=== PATIENT | female | born 1975 | race Caucasian/White ===

== ENCOUNTER 2017-07-23 08:59 | Observation (INO) | payer OTHER ==
[2017-07-23] MEDS ORDERED: RX INFO: IV CONTRAST WAS GIVEN 1 EACH MISC MISCELLANE PRN (09:13)
[2017-07-23] MEDS ORDERED: SODIUM CHLORIDE 0.9% 500 ML IV STA (09:13)
[2017-07-23 09:41] LABS: Basophils % (A) 0 %; Eosinophils # (A) 0.3 k/uL (0-0.7); Eosinophils % (A) 3 %; HCT 44.5 % (34.0-46.0); HGB 14.2 gm/dL (11.4-16.0); Lymphocytes # (A) 1.4 k/uL (1.0-4.8); Lymphocytes % (A) 15 %; MCHC 31.8 g/dL (31.0-37.0); MCV 84.8 fL (80.0-100.0); Mean Platelet Volume 7.7; Monocytes # (A) 0.5 k/uL (0-1.0); Monocytes % (A) 5 %; Neutrophils # (A) 6.8 k/uL (1.3-7.7); Neutrophils % (A) 75 %; Platelet Count 248 k/uL (150-450); RBC 5.25 m/uL (3.80-5.40); RDW 12.6 % (11.5-15.5)
[2017-07-23 09:53] LABS: Appearance,Urine Clear (Clear); Bacteria,Urine Rare /hpf; Bilirubin,Urine Negative (Negative); Blood,Urine Trace (Negative); Color,Urine Yellow; Glucose,Urine (UA) Negative (Negative); Ketones,Urine Negative (Negative); Leukocyte Esterase,Urine Small (Negative); Mucus,Urine Occasional /hpf; Nitrite,Urine Negative (Negative); Protein,Urine Negative (Negative); RBC,Urine 2 /hpf (0-5); Specific Gravity,Urine 1.017 (1.001-1.035); Squamous Epithelial Cell,Urine 3 /hpf (0-4); Urobilinogen,Urine <2.0 mg/dL (<2.0); WBC,Urine 6 /hpf (0-5)
[2017-07-23 09:54] LABS: ALT 36 U/L (9-52); AST 29 U/L (14-36); Albumin 4.3 g/dL (3.5-5.0); Alkaline Phosphatase 46 U/L (38-126); Amylase 50 U/L (30-110); Anion Gap 12 mmol/L; Blood Urea Nitrogen 11 mg/dL (7-17); Calcium 9.3 mg/dL (8.4-10.2); Carbon Dioxide 24 mmol/L (22-30); Chloride 106 mmol/L (98-107); Glucose 98 mg/dL (74-99); Lipase 113 U/L (23-300); Potassium 4.3 mmol/L (3.5-5.1); Sodium 142 mmol/L (137-145); Total Bilirubin 0.5 mg/dL (0.2-1.3); Total Protein 7.2 g/dL (6.3-8.2)
--- NOTE | 2017-07-23 10:00 | ED ---
Abdominal Pain HPI - General Chief Complaint: Abdominal Pain Stated Complaint: poss appendicitis Time Seen by Provider: 07/23/17 09:13 Source: patient, RN notes reviewed Mode of arrival: ambulatory Limitations: no limitations - History of Present Illness Initial Comments: 42-year-old female presents emergency Department with chief complaint of right- sided abdominal pain. Patient states he woke up abdominal night. She states it 's moderate discomfort to the right lower quadrant she does admit that she's had prior ovarian cyst surgery when she was teenager. Patient denies any known fever or chills or night sweats. She has no nausea vomiting diarrhea constipation this time no dysuria hematuria and states that she does not believe that she is . Patient states that certain things make it feel worse such as laying flat or getting to a seated position - Related Data Home Medications Medication Instructions Recorded Confirmed Plexus Biocleanse 2 cap PO PC-BID 07/23/17 07/23/17 Plexus Megax 2 cap PO DAILY 07/23/17 07/23/17 Plexus Probio 1 - 2 cap PO HS 07/23/17 07/23/17 Plexus Slim 1 pack PO AC-BRKFST 07/23/17 07/23/17 Allergies Allergy/AdvReac Type Severity Reaction Status Date / Time No Known Allergies Allergy Verified 07/23/17 09:12 Review of Systems ROS Statement: Those systems with pertinent positive or pertinent negative responses have been documented in the HPI. ROS Other: All systems not noted in ROS Statement are negative. Past Medical History Past Medical History: No Reported History History of Any Multi-Drug Resistant Organisms: None Reported Additional Past Surgical History / Comment(s): ovarian cyst surg Past Psychological History: Anxiety Smoking Status: Current every day smoker Past Alcohol Use History: Rare Past Drug Use History: None Reported General Exam Limitations: no limitations General appearance: alert, in no apparent distress Head exam: Present: atraumatic, normocephalic, normal inspection Respiratory exam: Present: normal lung sounds bilaterally. Absent: respiratory distress, wheezes, rales, rhonchi, stridor Cardiovascular Exam: Present: regular rate, normal rhythm, normal heart sounds. Absent: systolic murmur, diastolic murmur, rubs, gallop, clicks GI/Abdominal exam: Present: soft, tenderness (Moderate right lower quadrant tenderness), normal bowel sounds. Absent: distended, guarding, rebound, rigid Back exam: Absent: CVA tenderness (R), CVA tenderness (L) Skin exam: Present: warm, dry, intact, normal color. Absent: rash Course Vital Signs 07/23/17 07/23/17 09:09 10:44 Temperature 97.4 F L Pulse Rate 94 66 Respiratory 18 16 Rate Blood Pressure 155/65 121/65 O2 Sat by Pulse 100 100 Oximetry Medical Decision Making - Lab Data Result diagrams: 07/23/17 09:20 07/23/17 09:20 Lab Results 07/23/17 07/23/17 07/23/17 Range/Units 09:20 09:20 09:20 WBC 9.0 (3.8-10.6) k/uL RBC 5.25 (3.80-5.40) m/uL Hgb 14.2 (11.4-16.0) gm/dL Hct 44.5 (34.0-46.0) % MCV 84.8 (80.0-100.0) fL MCH 27.0 (25.0-35.0) pg MCHC 31.8 (31.0-37.0) g/dL RDW 12.6 (11.5-15.5) % Plt Count 248 (150-450) k/uL Neutrophils % 75 % Lymphocytes % 15 % Monocytes % 5 % Eosinophils % 3 % Basophils % 0 % Neutrophils # 6.8 (1.3-7.7) k/uL Lymphocytes # 1.4 (1.0-4.8) k/uL Monocytes # 0.5 (0-1.0) k/uL Eosinophils # 0.3 (0-0.7) k/uL Basophils # 0.0 (0-0.2) k/uL Sodium 142 (137-145) mmol/L Potassium 4.3 (3.5-5.1) mmol/L Chloride 106 (98-107) mmol/L Carbon Dioxide 24 (22-30) mmol/L Anion Gap 12 mmol/L BUN 11 (7-17) mg/dL Creatinine 0.72 (0.52-1.04) mg/dL Est GFR (CKD-EPI)AfAm >90 (>60 ml/min/1.73 sqM) Est GFR (CKD-EPI)NonAf >90 (>60 ml/min/1.73 sqM) Glucose 98 (74-99) mg/dL Calcium 9.3 (8.4-10.2) mg/dL Total Bilirubin 0.5 (0.2-1.3) mg/dL AST 29 (14-36) U/L ALT 36 (9-52) U/L Alkaline Phosphatase 46 (38-126) U/L Total Protein 7.2 (6.3-8.2) g/dL Albumin 4.3 (3.5-5.0) g/dL Amylase 50 (30-110) U/L Lipase 113 (23-300) U/L Urine Color Urine Appearance (Clear) Urine pH (5.0-8.0) Ur Specific [place] (1.001-1.035) Urine Protein (Negative) Urine Glucose (UA) (Negative) Urine Ketones (Negative) Urine Blood (Negative) Urine Nitrite (Negative) Urine Bilirubin (Negative) Urine Urobilinogen (<2.0) mg/dL Ur Leukocyte Esterase (Negative) Urine RBC (0-5) /hpf Urine WBC (0-5) /hpf Ur Squamous Epith Cells (0-4) /hpf Urine Bacteria (None) /hpf Urine Mucus (None) /hpf Urine HCG, Qual Not Detected (Not Detectd) 07/23/17 Range/Units 09:20 WBC (3.8-10.6) k/uL RBC (3.80-5.40) m/uL Hgb (11.4-16.0) gm/dL Hct (34.0-46.0) % MCV (80.0-100.0) fL MCH (25.0-35.0) pg MCHC (31.0-37.0) g/dL RDW (11.5-15.5) % Plt Count (150-450) k/uL Neutrophils % % Lymphocytes % % Monocytes % % Eosinophils % % Basophils % % Neutrophils # (1.3-7.7) k/uL Lymphocytes # (1.0-4.8) k/uL Monocytes # (0-1.0) k/uL Eosinophils # (0-0.7) k/uL Basophils # (0-0.2) k/uL Sodium (137-145) mmol/L Potassium (3.5-5.1) mmol/L Chloride (98-107) mmol/L Carbon Dioxide (22-30) mmol/L Anion Gap mmol/L BUN (7-17) mg/dL Creatinine (0.52-1.04) mg/dL Est GFR (CKD-EPI)AfAm (>60 ml/min/1.73 sqM) Est GFR (CKD-EPI)NonAf (>60 ml/min/1.73 sqM) Glucose (74-99) mg/dL Calcium (8.4-10.2) mg/dL Total Bilirubin (0.2-1.3) mg/dL AST (14-36) U/L ALT (9-52) U/L Alkaline Phosphatase (38-126) U/L Total Protein (6.3-8.2) g/dL Albumin (3.5-5.0) g/dL Amylase (30-110) U/L Lipase (23-300) U/L Urine Color Yellow Urine Appearance Clear (Clear) Urine pH 6.0 (5.0-8.0) Ur Specific [place] 1.017 (1.001-1.035) Urine Protein Negative (Negative) Urine Glucose (UA) Negative (Negative) Urine Ketones Negative (Negative) Urine Blood Trace H (Negative) Urine Nitrite Negative (Negative) Urine Bilirubin Negative (Negative) Urine Urobilinogen <2.0 (<2.0) mg/dL Ur Leukocyte Esterase Small H (Negative) Urine RBC 2 (0-5) /hpf Urine WBC 6 H (0-5) /hpf Ur Squamous Epith Cells 3 (0-4) /hpf Urine Bacteria Rare H (None) /hpf Urine Mucus Occasional H (None) /hpf Urine HCG, Qual (Not Detectd) Disposition Clinical Impression: Acute appendicitis Disposition: HOME SELF-CARE Condition: Stable Referrals: Mirella Pa MD [Primary Care Provider] - 1-2 days Time of Disposition: 11:09
--- NOTE | 2017-07-23 10:38 | CT ---
EXAMINATION TYPE: CT abdomen pelvis w con DATE OF EXAM: 07/23/2017 COMPARISON: NONE HISTORY: Patient complains of RUQ/right flank pain. CT DLP: 335.6 mGycm Automated exposure control for dose reduction was used. CONTRAST: CT scan of the abdomen pelvis is performed with IV Contrast, patient injected with 100 mL of Isovue 3 00. FINDINGS- LUNG BASES- No significant abnormality is appreciated. LIVER/GB- No gross abnormality is appreciated. PANCREAS- No gross abnormality is seen. SPLEEN- No gross abnormality is seen. ADRENALS- No gross abnormality is seen. KIDNEYS/BLADDER- no hydronephrosis nephrolithiasis or renal mass. BOWEL-there appears to be a dilated tubular structure measuring 10 mm in the right lower quadrant wit h suspected appendicolith. Suspect this is related to the appendix correlate for appendicitis. . LYMPH NODES- No greater than 1cm abdominal or pelvic lymph nodes are appreciated. OSSEOUS STRUCTURES- No significant abnormality is seen. OTHER- small amount of fluid is seen in the pelvis. There is a right-sided ovarian cyst measuring ap proximately 1.9 cm. Aorta of normal caliber. No definite free air. IMPRESSION- 1. Dilated tubular structure containing 2 areas of hyperdensity most likely related to a dilated appe ndix with appendicolith. Correlate for acute appendicitis. 2. Small amount of free fluid in the pelvis with a 1.9 cm right ovarian cyst. 3. The uterus is somewhat prominent and heterogeneous in appearance which could be correlated with ul trasound on a short-term basis.
[2017-07-23] MEDS ORDERED: NALOXONE 0.4 MG/ML 1 ML VIAL IV PRN ×2 (11:10→15:40)
[2017-07-23] MEDS ORDERED: PIPERACILLIN-TAZOBACTAM 3.375 GM in DEXTROSE/WATER 1 50ML.BAG IVPB STA (11:10)
[2017-07-23] MEDS ORDERED: SODIUM CHLORIDE 0.9% 1,000 ML IV SCH (11:15)
[2017-07-23] MEDS ORDERED: NICOTINE 21MG/24HR PATCH TRANSDERM STA (11:57)
[2017-07-23] MEDS ORDERED: IV FLUID CONTINUATION 1,000 ML IV ONE (12:33)
[2017-07-23] MEDS ORDERED: ONDANSETRON 4 MG/2 ML VIAL IVP ONE (12:53)
[2017-07-23] MEDS ORDERED: DEXAMETHASONE SOD PHOSPHATE 10 MG/ML 1 ML VIAL IV ONE (12:53)
[2017-07-23] MEDS ORDERED: HEPARIN SODIUM,PORCINE 5,000 UNIT/ML 1 ML VIAL SQ ONE (13:27)
--- NOTE | 2017-07-23 13:36 | P.GSHP ---
History of Present Illness H&P Date: 07/23/17 42-year-old female presents to the emergency department complaining of right lower quadrant pain. She states that the pain started a few hours prior to her arriving to the emergency department. She states it did wake her up from sleep. She denied any nausea or emesis episodes. She states she has been having normal bowel function. On workup, the emergency department did order a CT of the abdomen and pelvis that showed a dilated appendix and acute appendicitis. The patient states that she has had 2 laparoscopic ovarian cyst procedures in the past. She denies being on any anticoagulation. She does admit to tobacco use daily. She has no additional complaints at this time. She denies any fevers, chills, chest pain or shortness of breath. - Review of Systems All systems: negative Past Medical History Past Medical History: No Reported History History of Any Multi-Drug Resistant Organisms: None Reported Additional Past Surgical History / Comment(s): ovarian cyst surg Past Psychological History: Anxiety Smoking Status: Current every day smoker Past Alcohol Use History: Rare Past Drug Use History: None Reported Medications and Allergies Home Medications Medication Instructions Recorded Confirmed Type Plexus Biocleanse 2 cap PO PC-BID 07/23/17 07/23/17 History Plexus Megax 2 cap PO DAILY 07/23/17 07/23/17 History Plexus Probio 1 - 2 cap PO HS 07/23/17 07/23/17 History Plexus Slim 1 pack PO AC-BRKFST 07/23/17 07/23/17 History Allergies Allergy/AdvReac Type Severity Reaction Status Date / Time No Known Allergies Allergy Verified 07/23/17 09:12 Surgical - Exam Osteopathic Statement: *. No significant issues noted on an osteopathic structural exam other than those noted in the History and Physical/Consult. Vital Signs Temp Pulse Resp BP Pulse Ox 97.4 F L 94 18 155/65 100 07/23/17 09:09 07/23/17 09:09 07/23/17 09:09 07/23/17 09:09 07/23/17 09:09 - General well nourished, no distress - Eyes PERRL - ENT normal mucosa, no hearing loss - Neck trachea midline - Respiratory No difficulty with respiration - Abdomen Soft, tender to palpation in the right lower quadrant, nondistended, no rebound , no guarding - Neurologic normal sensation - Musculoskeletal normal gait - Psychiatric oriented to time, oriented to person, oriented to place Results - Labs 07/23/17 09:20 07/23/17 09:20 Abnormal Lab Results - Last 24 Hours (Table) 07/23/17 Range/Units 09:20 Urine Blood Trace H (Negative) Ur Leukocyte Esterase Small H (Negative) Urine WBC 6 H (0-5) /hpf Urine Bacteria Rare H (None) /hpf Urine Mucus Occasional H (None) /hpf Diabetes panel 07/23/17 Range/Units 09:20 Sodium 142 (137-145) mmol/L Potassium 4.3 (3.5-5.1) mmol/L Chloride 106 (98-107) mmol/L Carbon Dioxide 24 (22-30) mmol/L BUN 11 (7-17) mg/dL Creatinine 0.72 (0.52-1.04) mg/dL Glucose 98 (74-99) mg/dL Calcium 9.3 (8.4-10.2) mg/dL AST 29 (14-36) U/L ALT 36 (9-52) U/L Alkaline Phosphatase 46 (38-126) U/L Total Protein 7.2 (6.3-8.2) g/dL Albumin 4.3 (3.5-5.0) g/dL Calcium panel 07/23/17 Range/Units 09:20 Calcium 9.3 (8.4-10.2) mg/dL Albumin 4.3 (3.5-5.0) g/dL Pituitary panel 07/23/17 Range/Units 09:20 Sodium 142 (137-145) mmol/L Potassium 4.3 (3.5-5.1) mmol/L Chloride 106 (98-107) mmol/L Carbon Dioxide 24 (22-30) mmol/L BUN 11 (7-17) mg/dL Creatinine 0.72 (0.52-1.04) mg/dL Glucose 98 (74-99) mg/dL Calcium 9.3 (8.4-10.2) mg/dL Adrenal panel 07/23/17 Range/Units 09:20 Sodium 142 (137-145) mmol/L Potassium 4.3 (3.5-5.1) mmol/L Chloride 106 (98-107) mmol/L Carbon Dioxide 24 (22-30) mmol/L BUN 11 (7-17) mg/dL Creatinine 0.72 (0.52-1.04) mg/dL Glucose 98 (74-99) mg/dL Calcium 9.3 (8.4-10.2) mg/dL Total Bilirubin 0.5 (0.2-1.3) mg/dL AST 29 (14-36) U/L ALT 36 (9-52) U/L Alkaline Phosphatase 46 (38-126) U/L Total Protein 7.2 (6.3-8.2) g/dL Albumin 4.3 (3.5-5.0) g/dL - Imaging CT scan - abdomen: report reviewed, image reviewed (CT of the abdomen and pelvis was reviewed. Appendicolith noted. Acute appendicitis.) CT scan - pelvis: report reviewed, image reviewed Assessment and Plan (1) Acute appendicitis Narrative/Plan: 42-year-old female with acute appendicitis - Patient was given Zosyn in the emergency department, continue antibiotics - Subcu heparin - Keep nothing by mouth - Plan for operating room for laparoscopic appendectomy - Further recommendations after surgery Current Visit: Yes Status: Acute Code(s): K35.80 - UNSPECIFIED ACUTE APPENDICITIS SNOMED Code(s): 24564416
[2017-07-23] MEDS ORDERED: GLYCOPYRROLATE 0.2 MG/ML 2 ML VIAL ONE (14:13)
[2017-07-23] MEDS ORDERED: LIDOCAINE 1% INJ 10MG/ML (20 ML MDV) ONE (14:13)
[2017-07-23] MEDS ORDERED: MIDAZOLAM 2 MG/2 ML VIAL ONE (14:13)
[2017-07-23] MEDS ORDERED: KETOROLAC 30 MG/ML 1 ML VIAL ONE (14:13)
[2017-07-23] MEDS ORDERED: fentaNYL (PF) 50 MCG/ML 2 ML AMP ONE (14:13)
[2017-07-23] MEDS ORDERED: PROPOFOL 10 MG/ML 20 ML VIAL IV ONE (14:13)
[2017-07-23] MEDS ORDERED: NEOSTIGMINE 1 MG/ML 10 ML VIAL ONE (14:13)
[2017-07-23] MEDS ORDERED: ROCURONIUM BROMIDE 10 MG/ML 10 ML VIAL IV ONE (14:13)
[2017-07-23] MEDS ORDERED: LIDOCAINE 1%-EPI 1:100,000 30 ML VIAL SQ ONE ×2 (14:31→14:51)
--- NOTE | 2017-07-23 15:12 | P.OP ---
Date of Procedure: 07/23/17 Preoperative Diagnosis: Acute appendicitis Postoperative Diagnosis: Acute appendicitis Procedure(s) Performed: Laparoscopic appendectomy Anesthesia: KAIDEN Surgeon: Joe Orellana Pathology: other (Appendix) Condition: stable Disposition: floor Indications for Procedure: 42-year-old female presented to the emergency department complaining of right lower quadrant pain. On workup she was found to have acute appendicitis with an appendicolith at the base of the appendix. Due to this, the patient was offered a laparoscopic appendectomy. The patient was excellent the risks, benefits and alternatives to the procedure provided consent prior to attending the operating suite. Operative Findings: Inflamed and thickened appendix Description of Procedure: The patient was brought to the operating suite placed in supine position on the operating table. Sedation was provided by anesthesia and the patient underwent endotracheal intubation. The patient was then prepped and draped in regular sterile fashion. An infraumbilical incision was made dissection was carried to the fascia and the fascia was incised. A 12 mm port was then placed and pneumoperitoneum was achieved. The patient was then placed in appropriate position. The inflamed appendix was immediately visible. 2 additional 5 mm ports were placed. One was placed in the suprapubic region and one was placed in the left lower quadrant. The appendix was then grasped and elevated. A [place] dissector was used to create a window between the appendix and the mesoappendix. A LigaSure device was then used to dissect the mesoappendix from the appendix. Hemostasis was noted to be maintained. The base of the appendix was then clearly visualized. A purple load Endo MITCHELL 45 mm stapler was then placed across the base of the appendix. Once fired, the appendix was free and was placed in a Endo Catch bag and removed from the abdomen. Irrigation was then used in the right lower quadrant and suctioned free. The infraumbilical incision site fascia was closed with a [id number] 0 Vicryl suture. This was placed under direct visualization with a Shonna device. Pneumoperitoneum was then released. All skin incisions were then closed with 4- 0 Vicryl subcuticular sutures. The patient was then awakened in the operating suite and taken to postanesthesia care unit in stable condition.
[2017-07-23] MEDS ORDERED: HYDROcodone/APAP 5-325MG 1 EACH TAB PO PRN (15:40)
[2017-07-23] MEDS ORDERED: LACTATED RINGERS 1,000 ML IV ONE (15:40)
[2017-07-23] MEDS ORDERED: ONDANSETRON 4 MG/2 ML VIAL IVP PRN (15:40)
[2017-07-23] MEDS: KETOROLAC 30 MG/ML 1 ML VIAL IVP SCH ×2 (17:03→22:21)
[2017-07-23] MEDS: HEPARIN SODIUM,PORCINE 5,000 UNIT/ML 1 ML VIAL SQ SCH ×2 (17:10→22:22)
[2017-07-23] MEDS: PIPERACILLIN-TAZOBACTAM 3.375 GM in DEXTROSE/WATER 1 50ML.BAG IVPB SCH (17:15)
[2017-07-23 17:37] VITALS: BMI 22.3
[2017-07-24] MEDS: PIPERACILLIN-TAZOBACTAM 3.375 GM in DEXTROSE/WATER 1 50ML.BAG IVPB SCH ×2 (00:29→08:15)
[2017-07-24] MEDS: KETOROLAC 30 MG/ML 1 ML VIAL IVP SCH (04:19)
[2017-07-24 07:59] LABS: ALT 27 U/L (9-52); AST 20 U/L (14-36); Albumin 3.2 g/dL (3.5-5.0); Alkaline Phosphatase 38 U/L (38-126); Anion Gap 9 mmol/L; Blood Urea Nitrogen 7 mg/dL (7-17); Calcium 8.6 mg/dL (8.4-10.2); Carbon Dioxide 21 mmol/L (22-30); Chloride 109 mmol/L (98-107); Glucose 96 mg/dL (74-99); Potassium 4.5 mmol/L (3.5-5.1); Sodium 139 mmol/L (137-145); Total Bilirubin 0.7 mg/dL (0.2-1.3); Total Protein 5.7 g/dL (6.3-8.2)
[2017-07-24] MEDS: HEPARIN SODIUM,PORCINE 5,000 UNIT/ML 1 ML VIAL SQ SCH (08:15)
[2017-07-24 08:23] LABS: Basophils % (A) 0 %; Eosinophils % (A) 0 %; HCT 35.6 % (34.0-46.0); HGB 12.2 gm/dL (11.4-16.0); Lymphocytes # (A) 0.9 k/uL (1.0-4.8); Lymphocytes % (A) 15 %; MCH 28.9 pg (25.0-35.0); MCHC 34.2 g/dL (31.0-37.0); MCV 84.5 fL (80.0-100.0); Mean Platelet Volume 7.7; Monocytes # (A) 0.4 k/uL (0-1.0); Monocytes % (A) 6 %; Neutrophils % (A) 78 %; Platelet Count 199 k/uL (150-450); RBC 4.22 m/uL (3.80-5.40); RDW 12.3 % (11.5-15.5); WBC 6.4 k/uL (3.8-10.6)
[2017-07-24] MEDS ORDERED: PANTOPRAZOLE 40 MG/10 ML VIAL IV SCH (09:00)
--- NOTE | 2017-07-24 11:52 | P.DS ---
Providers Date of admission: 07/23/17 11:22 Expected date of discharge: 07/24/17 Attending physician: Joe Orellana DO Primary care physician: Mirella Pa [facility] Course: 42-year-old who presented on the day of admission to the emergency room with a chief complaint of developing right lower quadrant abdominal pain several hours prior to arriving to the emergency room. Patient stated that she woke up from sleep with the pain. CAT scan in the emergency room of the abdomen pelvis showed a dilated appendix an acute appendicitis. Patient does have a past surgical history of having to laparoscopic ovarian cyst procedures in the past. Does admit to current active tobacco use. On no anticoagulation. No fever chills. No shortness of breath or chest pain. On July 23 the patient underwent a laparoscopic appendectomy for a acute appendicitis. On the day of discharge the white count was 6.4 hemoglobin 12.2 electrolytes within normal limits afebrile Impression discharge diagnosis Present on admission right lower quadrant abdominal pain suspect due to an acute appendicitis Postop July 23 laparoscopic appendectomy for acute appendicitis Computed tomography scan abdomen and pelvis showed acute appendicitis and appendicolith noted The above impression and plan of care have been discussed and directed by signing physician. Tara Pretty nurse practitioner acting as scribe for signing physician. Patient Condition at Discharge: Stable Plan - Discharge Summary New Discharge Prescriptions: New HYDROcodone/APAP 5-325MG [Margaret 5-325] 1 each PO Q6HR PRN #10 tab PRN Reason: Mild Pain Acetaminophen Tab [Tylenol Tab] 650 mg PO Q4H #30 tablet Continue Plexus Megax 2 cap PO DAILY Plexus Slim 1 pack PO AC-BRKFST Plexus Biocleanse 2 cap PO PC-BID Plexus Probio 1 - 2 cap PO HS Discharge Medication List Plexus Biocleanse 2 cap PO PC-BID 07/23/17 [History] Plexus Megax 2 cap PO DAILY 07/23/17 [History] Plexus Probio 1 - 2 cap PO HS 07/23/17 [History] Plexus Slim 1 pack PO AC-BRKFST 07/23/17 [History] Acetaminophen Tab [Tylenol Tab] 650 mg PO Q4H #30 tablet 07/24/17 [Rx] HYDROcodone/APAP 5-325MG [Margaret 5-325] 1 each PO Q6HR PRN #10 tab 07/24/17 [Rx] Follow up Appointment(s)/Referral(s): Mirella Pa MD [Primary Care Provider] - 1-2 days Joe Orellana DO [Doctor of Osteopathic Medicine] - 1 Week Activity/Diet/Wound Care/Special Instructions: No tub bath for six weeks. Shower daily. No lifting over 10 pounds for the next 6 weeks. Avoid constipation may use [id number] stool softeners if needed May use ice packs to surgical site. No driving while taking narcotic for pain. Discharge Disposition: HOME SELF-CARE
[2017-07-24 13:02] VITALS: BP 99/51; PULSE 64; RESP 18; TEMP 98.1
== END 2017-07-24 13:41 | disposition home or self-care (01) ==
LOC: EC 08:59 → 6PED 11:22
PROVIDERS: ADMIT Surgery; ATTEND Surgery
DX: K35.80 Unspecified acute appendicitis (principal); K38.1 Appendicular concretions; F41.9 Anxiety disorder, unspecified; F17.200 Nicotine dependence, unspecified, uncomplicated; N83.201 Unspecified ovarian cyst, right side; Z87.42 Personal history of other diseases of the female genital tract
CPT/HCPCS: 44970; 99285 ×2; 96365 ×2; 96361 ×4; 36415; 81025 ×2; 88304; 80053 ×2; 82150; 83690; 85025 ×2; 81001; 74177; G0378 ×2; J2250; J1644 ×2; J1100; J2710; J2405; J2001; J3010; J1885 ×2; J2543 ×2; J2704; C9113; Q9967

== ENCOUNTER 2020-06-16 14:56 | Observation (INO) | payer OTHER ==
[2020-06-16] MEDS ORDERED: NITROGLYCERIN OINT 1 INCH/GM PACKET TOPICAL STA (15:40)
--- NOTE | 2020-06-16 15:45 | ED ---
General Adult HPI - General Chief complaint: Chest Pain Stated complaint: Chest pain Time Seen by Provider: 06/16/20 15:10 Source: patient, family, RN notes reviewed Mode of arrival: wheelchair Limitations: no limitations - History of Present Illness Initial comments: Patient is a pleasant 45-year-old female presenting to the emergency Department with complaints of chest discomfort. Symptoms have been intermittent over the past 10 days, somewhat worse the past few days. Discomfort is currently mild. Discomfort feels like indigestion in her chest. Patient occasionally has some right shoulder discomfort however this is chronic. Patient is having some associated nausea. Patient has had some mild episodes associated dyspnea. No diaphoresis. No leg pain or leg swelling. Patient did see her primary care physician earlier today and was given aspirin and advised come the emergency department. Patient also complains of anxiety and questions if this is related to her symptoms. - Related Data Home Medications Medication Instructions Recorded Confirmed Plexus Biocleanse 2 cap PO PC-BID 07/23/17 07/23/17 Plexus Megax 2 cap PO DAILY 07/23/17 07/23/17 Plexus Probio 1 - 2 cap PO HS 07/23/17 07/23/17 Plexus Slim 1 pack PO AC-BRKFST 07/23/17 07/23/17 Previous Rx's Medication Instructions Recorded Acetaminophen Tab [Tylenol Tab] 650 mg PO Q4H #30 tablet 07/24/17 HYDROcodone/APAP 5-325MG [[place] 1 each PO Q6HR PRN #10 tab 07/24/17 5-325] Allergies Allergy/AdvReac Type Severity Reaction Status Date / Time No Known Allergies Allergy Verified 06/16/20 15:08 Review of Systems ROS Statement: Those systems with pertinent positive or pertinent negative responses have been documented in the HPI. ROS Other: All systems not noted in ROS Statement are negative. Constitutional: Denies: fever Eyes: Denies: eye pain ENT: Denies: ear pain Respiratory: Reports: as per HPI Cardiovascular: Reports: as per HPI, chest pain Endocrine: Denies: fatigue Gastrointestinal: Denies: vomiting Genitourinary: Denies: dysuria Musculoskeletal: Denies: back pain Skin: Denies: rash Neurological: Denies: headache Psychiatric: Reports: anxiety Past Medical History Past Medical History: No Reported History History of Any Multi-Drug Resistant Organisms: None Reported Past Surgical History: Appendectomy Additional Past Surgical History / Comment(s): ovarian cyst surg Past Psychological History: Anxiety Smoking Status: Former smoker Past Alcohol Use History: Occasional Past Drug Use History: None Reported - Past Family History Mother Family Medical History: No Reported History General Exam Limitations: no limitations General appearance: alert, in no apparent distress Head exam: Present: atraumatic Eye exam: Present: normal appearance Neck exam: Present: normal inspection Respiratory exam: Present: normal lung sounds bilaterally. Absent: chest wall tenderness Cardiovascular Exam: Present: regular rate, normal rhythm Expanded Peripheral pulses: 2+: Radial (R), Radial (L), Dorsalis Pedis (R), Dorsalis Pedis (L) GI/Abdominal exam: Present: soft. Absent: distended, tenderness Extremities exam: Present: normal inspection. Absent: pedal edema, calf tenderness Neurological exam: Present: alert Psychiatric exam: Present: normal affect, normal mood Skin exam: Present: normal color Course Vital Signs 06/16/20 06/16/20 06/16/20 15:04 16:13 16:16 Temperature 97.9 F 97.9 F 97.9 F Pulse Rate 80 75 66 Respiratory 18 16 16 Rate Blood Pressure 139/65 124/81 126/78 O2 Sat by Pulse 100 99 99 Oximetry EKG Findings - EKG Comments: EKG Findings:: Normal sinus rhythm at 75. [place] 132. QRS 84. QT 388. QTC 433. Normal axis. Septal Q waves. No acute ST change. Medical Decision Making - Medical Decision Making Patient had episode of tachycardia with rate up to 160 on the monitor. Nursing staff did suspect SVT. Patient reevaluated and feels better. At this time: Monitor with sinus tachycardia rate of 112. Patient was placed on monitor to monitor for arrhythmias. Repeat EKG: Normal sinus rhythm 98. [place] 1:30. QRS 80. QT 358. QTC 457. Normal axis. Septal Q waves. Q waves to extend laterally. No acute ST change Case discussed with Dr. Gonzalez, who will admit covering for Dr. Gibson. Patient updated - Lab Data Result diagrams: 06/16/20 16:00 06/16/20 16:00 Lab Results 06/16/20 06/16/20 06/16/20 Range/Units 16:00 16:00 16:00 WBC 5.4 (3.8-10.6) k/uL RBC 4.73 (3.80-5.40) m/uL Hgb 13.7 (11.4-16.0) gm/dL Hct 41.5 (34.0-46.0) % MCV 87.6 (80.0-100.0) fL MCH 28.9 (25.0-35.0) pg MCHC 33.0 (31.0-37.0) g/dL RDW 12.6 (11.5-15.5) % Plt Count 250 (150-450) k/uL MPV 7.4 Neutrophils % 60 % Lymphocytes % 29 % Monocytes % 5 % Eosinophils % 4 % Basophils % 0 % Neutrophils # 3.2 (1.3-7.7) k/uL Lymphocytes # 1.6 (1.0-4.8) k/uL Monocytes # 0.3 (0-1.0) k/uL Eosinophils # 0.2 (0-0.7) k/uL Basophils # 0.0 (0-0.2) k/uL Sodium 139 (137-145) mmol/L Potassium 4.1 (3.5-5.1) mmol/L Chloride 104 (98-107) mmol/L Carbon Dioxide 26 (22-30) mmol/L Anion Gap 9 mmol/L BUN 11 (7-17) mg/dL Creatinine 0.66 (0.52-1.04) mg/dL Est GFR (CKD-EPI)AfAm >90 (>60 ml/min/1.73 sqM) Est GFR (CKD-EPI)NonAf >90 (>60 ml/min/1.73 sqM) Glucose 85 (74-99) mg/dL Calcium 9.0 (8.4-10.2) mg/dL Magnesium 2.1 (1.6-2.3) mg/dL Total Bilirubin 0.3 (0.2-1.3) mg/dL AST 30 (14-36) U/L ALT 23 (4-34) U/L Alkaline Phosphatase 39 (38-126) U/L Troponin I <0.012 (0.000-0.034) ng/mL Total Protein 7.0 (6.3-8.2) g/dL Albumin 4.1 (3.5-5.0) g/dL Disposition Clinical Impression: Chest pain Disposition: ADMITTED IP TO THIS [facility] Is patient prescribed a controlled substance at d/c from ED?: No Referrals: Faiza Gibson MD [Primary Care Provider] - 1-2 days Decision Time: 17:23
[2020-06-16 16:30] LABS: Basophils % (A) 0 %; Eosinophils # (A) 0.2 k/uL (0-0.7); Eosinophils % (A) 4 %; HCT 41.5 % (34.0-46.0); HGB 13.7 gm/dL (11.4-16.0); Lymphocytes # (A) 1.6 k/uL (1.0-4.8); Lymphocytes % (A) 29 %; MCH 28.9 pg (25.0-35.0); MCV 87.6 fL (80.0-100.0); Mean Platelet Volume 7.4; Monocytes # (A) 0.3 k/uL (0-1.0); Monocytes % (A) 5 %; Neutrophils # (A) 3.2 k/uL (1.3-7.7); Neutrophils % (A) 60 %; Platelet Count 250 k/uL (150-450); RBC 4.73 m/uL (3.80-5.40); RDW 12.6 % (11.5-15.5); WBC 5.4 k/uL (3.8-10.6)
[2020-06-16 16:51] LABS: ALT 23 U/L (4-34); AST 30 U/L (14-36); African American GFR (CKD) >90 (>60 ml/min/1.73 sqM); Albumin 4.1 g/dL (3.5-5.0); Alkaline Phosphatase 39 U/L (38-126); Anion Gap 9 mmol/L; Blood Urea Nitrogen 11 mg/dL (7-17); Carbon Dioxide 26 mmol/L (22-30); Chloride 104 mmol/L (98-107); Glucose 85 mg/dL (74-99); Magnesium 2.1 mg/dL (1.6-2.3); Non-African American GFR(CKD) >90 (>60 ml/min/1.73 sqM); Potassium 4.1 mmol/L (3.5-5.1); Sodium 139 mmol/L (137-145); Total Bilirubin 0.3 mg/dL (0.2-1.3)
[2020-06-16 16:55] LABS: D-Dimer <0.17 mg/L FEU (<0.60); INR 0.9 (<1.2)
--- NOTE | 2020-06-16 17:00 | XR ---
EXAMINATION TYPE: XR chest 2V DATE OF EXAM: 06/16/2020 COMPARISON: NONE HISTORY: Chest pain TECHNIQUE: 2 views FINDINGS: Heart and mediastinum are normal. Lungs are clear. Diaphragm is normal. Bony thorax appears normal. There are chest leads. IMPRESSION: Normal chest.
[2020-06-16 17:22] LABS: Partial Thromboplastin Time 21.9 sec (22.0-30.0)
[2020-06-16] MEDS ORDERED: NITROGLYCERIN SL TABS 0.4 MG TAB SUBLINGUAL PRN (17:24)
[2020-06-16] MEDS ORDERED: ACETAMINOPHEN TAB 325 MG TAB PO PRN (19:09)
[2020-06-17] MEDS ORDERED: ASPIRIN 325 MG TAB PO SCH (09:00)
[2020-06-17] MEDS ORDERED: PANTOPRAZOLE 40 MG/10 ML VIAL IVP SCH (09:15)
[2020-06-17 10:04] LABS: Chol/HDL Ratio 2.49
[2020-06-17 10:28] VITALS: BP 108/71; PULSE 78; RESP 18; TEMP 97.9
--- NOTE | 2020-06-17 10:52 | P.CRDCN ---
History of Present Illness History of present illness: off and on chest pain for the last 1 week. associated with light headed, nausea, belching. HISTORY OF PRESENTING ILLNESS This is a pleasant 45-year-old female past medical history significant for her nicotine dependence, she quit smoking one year ago and self-reported anxiety. 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 We have been asked to see in consultation for chest pain. She states for the previous 1-week she has been experiencing symptoms of chest pain intermittently. The pain is described as sometimes sharp and other times tight. It occurs randomly with no specific aggravating or alleviating factors. She has associated feeling of nausea and frequent belching. At times she feels her heart rate during an episode of chest pain but that is very brief. Currently she is chest pain free. DIAGNOSTICS EKG reveals sinus mechanism with poor R-wave progressio and nonspecific abnormalities inferior laterally n. Telemetry tracings indicate sinus mechanism with no acute arrhythmia. Chest xray negative for acute cardiopulmonary process. Laboratory reviewed, CBC unremarkable, d-dimer less than 0.17, sodium 139, potassium 4.1, creatinine 0.66, cardiac enzymes negative 3, LDL 85 and HDL 65. She takes no daily cardiac medications REVIEW OF SYSTEMS At the time of my exam: CONSTITUTIONAL: Denies fever or chills. CARDIOVASCULAR: Denies chest pain, shortness of breath, orthopnea, PND or palpitations. RESPIRATORY: Denies cough. GASTROINTESTINAL: Denies abdominal pain, diarrhea, constipation, nausea or v omiting. MUSCULOSKELETAL: Denies myalgias. NEUROLOGIC: Denies numbness, tingling, headacbe or weakness. ENDOCRINE: Denies fatigue, weight change, polydipsia or polyurina. GENITOURINARY: Denies burning, hematuria or urgency with micturation. HEMATOLOGIC: Denies history of anemia or bleeding. PHYSICAL EXAMINATION Blood pressure 108/71 heart rate 78 afebrile and maintaining oxygen saturation on room air. CONSTITUTIONAL: No apparent distress. HEENT: Head is normocephalic. Pupils are equal, round. Sclerae anicteric. Mucous membranes of the mouth are moist. No JVD. No carotid bruit. CHEST EXAMINATION: Lungs are clear to auscultation. No chest wall tenderness is noted on palpation or with deep breathing. HEART EXAMINATION: Regular rate and rhythm. S1, S2 heard. No murmurs, gallops or rub. ABDOMEN: Soft, nontender. Positive bowel sounds. EXTREMITIES: 2+ peripheral pulses, no lower extremity edema and no calf tenderness. NEUROLOGIC EXAMINATION: Patient is awake, alert and oriented x3. ASSESSMENT Chest pain Former nicotine dependence PLAN An acute coronary event has been ruled out. Pain is atypical for angina. Perform stress echocardiogram to assess for stress induced ischemia. If normal she can be discharged home. Thank you kindly for this consultation. Nurse Practitioner note has been reviewed, I agree with a documented findings and plan of care. Patient was seen and examined. Past Medical History Past Medical History: No Reported History History of Any Multi-Drug Resistant Organisms: None Reported Past Surgical History: Appendectomy Additional Past Surgical History / Comment(s): ovarian cyst surg Past Anesthesia/Blood Transfusion Reactions: No Reported Reaction Past Psychological History: Anxiety Smoking Status: Former smoker Past Alcohol Use History: Occasional Past Drug Use History: None Reported - Past Family History Mother Family Medical History: No Reported History Medications and Allergies Home Medications Medication Instructions Recorded Confirmed Type Ascorbic Acid [Vitamin C] 1,000 mg PO DAILY 06/16/20 06/16/20 History Cholecalciferol [Vitamin D3 (25 50 mcg PO DAILY 06/16/20 06/16/20 History Mcg = 1000 Iu)] Ferrous Sulfate [Feosol] 325 mg PO DAILY 06/16/20 06/16/20 History L.acidoph,Paracasei, B.lactis 1 cap PO DAILY 06/16/20 06/16/20 History [Probiotic] Multivitamins, Thera [Multivitamin 1 tab PO DAILY 06/16/20 06/16/20 History (formulary)] [place]-3 Fatty Acids [[place]-3] 1,000 mg PO DAILY 06/16/20 06/16/20 History Allergies Allergy/AdvReac Type Severity Reaction Status Date / Time No Known Allergies Allergy Verified 06/16/20 17:21 Physical Exam Vitals: Vital Signs Temp Pulse Pulse Resp BP BP Pulse Ox 06/17/20 07:45 95 06/17/20 01:15 97.7 F 62 16 110/66 99 06/16/20 18:10 18 06/16/20 17:31 97.9 F 95 16 109/73 99 06/16/20 17:21 93 20 130/74 100 06/16/20 16:54 158 H 23 133/74 100 06/16/20 16:16 97.9 F 66 16 126/78 99 06/16/20 16:13 97.9 F 75 16 124/81 99 06/16/20 15:04 97.9 F 80 18 139/65 100 Intake and Output 06/16/20 06/17/20 06/17/20 22:59 06:59 14:59 Other: Voiding Method Toilet # Voids 1 1 Weight 57.153 kg Results 06/16/20 16:00 06/16/20 16:00 Cardiac Enzymes 06/16/20 06/16/20 06/16/20 Range/Units 16:00 16:00 18:47 AST 30 (14-36) U/L Troponin I <0.012 <0.012 (0.000-0.034) ng/mL 06/16/20 Range/Units 21:37 AST (14-36) U/L Troponin I <0.012 (0.000-0.034) ng/mL Coagulation 06/16/20 Range/Units 16:00 PT 10.0 (9.0-12.0) sec APTT 21.9 L (22.0-30.0) sec CBC 06/16/20 Range/Units 16:00 WBC 5.4 (3.8-10.6) k/uL RBC 4.73 (3.80-5.40) m/uL Hgb 13.7 (11.4-16.0) gm/dL Hct 41.5 (34.0-46.0) % Plt Count 250 (150-450) k/uL Comprehensive Metabolic Panel 06/16/20 Range/Units 16:00 Sodium 139 (137-145) mmol/L Potassium 4.1 (3.5-5.1) mmol/L Chloride 104 (98-107) mmol/L Carbon Dioxide 26 (22-30) mmol/L BUN 11 (7-17) mg/dL Creatinine 0.66 (0.52-1.04) mg/dL Glucose 85 (74-99) mg/dL Calcium 9.0 (8.4-10.2) mg/dL AST 30 (14-36) U/L ALT 23 (4-34) U/L Alkaline Phosphatase 39 (38-126) U/L Total Protein 7.0 (6.3-8.2) g/dL Albumin 4.1 (3.5-5.0) g/dL Current Medications Generic Name Dose Route Start Last Admin Trade Name Freq PRN Reason Stop Dose Admin Acetaminophen 650 mg 06/16/20 19:09 06/16/20 19:20 Acetaminophen Tab 325 Mg Tab PO 650 mg Q4HR PRN Administration Fever and/ or Pain Aspirin 325 mg 06/17/20 09:00 Aspirin 325 Mg Tab PO DAILY JESICA Nitroglycerin 0.4 mg 06/16/20 17:24 Nitroglycerin Sl Tabs 0.4 Mg Tab SUBLINGUAL Q5M PRN Chest Pain Intake and Output 06/16/20 06/17/20 06/17/20 22:59 06:59 14:59 Other: Voiding Method Toilet # Voids 1 1 Weight 57.153 kg 06/16/20 16:00 06/16/20 16:00
--- NOTE | 2020-06-17 11:01 | ECHOF ---
Referral Reason:Chest pain and tachycardia MEASUREMENTS -------- HEIGHT: 157.5 cm WEIGHT: 57.2 kg BP: 110/66 RVIDd: 2.8 cm (< 3.3) IVSd: 1.0 cm (0.6 - 1.1) LVIDd: 3.0 cm (3.9 - 5.3) LVPWd: 1.0 cm (0.6 - 1.1) IVSs: 1.3 cm LVIDs: 2.3 cm LVPWs: 1.7 cm LA Diam: 2.7 cm (2.7 - 3.8) LAESV Index (A-L): 23.52 ml/m Ao Diam: 2.9 cm (2.0 - 3.7) AV Cusp: 1.7 cm (1.5 - 2.6) MV EXCURSION: 18.432 mm (> 18.000) MV EF SLOPE: 123 mm/s (70 - 150) EPSS: 0.3 cm MV E Ej: 0.96 m/s MV DecT: 201 ms MV A Ej: 0.75 m/s MV E/A Ratio: 1.27 RAP: 5.00 mmHg RVSP: 19.31 mmHg FINDINGS -------- Sinus rhythm. This was a technically good study. The left ventricular size is normal. Left ventricular wall thickness is normal. Overall left vent ricular systolic function is normal with, an EF between 60 - 65 %. The right ventricle is normal in size. Normal LA size by volume 22+/-6 ml/m2. The right atrium is normal in size. Interatrial and interventricular septum intact. The aortic valve is trileaflet and appears structurally normal. The mitral valve is normal. Mild tricuspid regurgitation present. Right ventricular systolic pressure is normal at < 35 mmHg. There is no pulmonic regurgitation present. The aortic root size is normal. Normal inferior vena cava with normal inspiratory collapse consistent with estimated right atrial pre ssure of 5 mmHg. There is no pericardial effusion. CONCLUSIONS -------- 1. The left ventricular size is normal. 2. Left ventricular wall thickness is normal. 3. Overall left ventricular systolic function is normal with, an EF between 60 - 65 %. 4. Mild tricuspid regurgitation present. 5. There is no pericardial effusion. CASING IN LINE SETTER: MADDY Helm
--- NOTE | 2020-06-17 13:48 | ECHOS ---
STRESS ECHOCARDIOGRAM LUMASON: N/A Vial INDICATIONS: Chest pain MEDICATIONS: BASELINE HEART RATE: 70 BASELINE BLOOD PRESSURE: 132/86 MAXIMUM HEART RATE: 162 MAXIMUM BLOOD PRESSURE: 148/87 85% MPHR: 148 100% MPHR: 174 METS: 12.1 MAXIMUM STAGE REACHED: 3 TOTAL EXERCISE TIME: 10-1/2 minutes CLINICAL INFORMATION: Yecenia Rolle is a 45-year-old female who presented with chest discomfort. She underwent a exercise stress echo. Baseline heart rate 70 beats per minute. Baseline blood pressure 132/86 mmHg. Baseline 12-lead EKG showed nonspecific ST-T abnormalities. Patient exercised on a [place] protocol for 10-1/2 minutes achieving a peak heart rate of 162 beats per minute. Normal blood pressure response to exercise. No arrhythmias noted. There were no new ST-segment abnormalities noted. The baseline 2D echo images showed normal LV size systolic function without segmental wall motion abnormalities. At peak exercise, there was excellent augmentation of overall LV contractility without development of any wall motion abnormalities. At recovery, regional global LV systolic function remained normal. IMPRESSION: 1. Good exercise capacity on a [place] protocol. 2. Normal heart rate and blood pressure response. 3. No arrhythmias noted. 4. No ECG or echocardiographic evidence for ischemia. MMODL / IJN: [id number] /
[2020-06-18] MEDS ORDERED: ASCORBIC ACID 500 MG TAB PO SCH (09:00)
[2020-06-18] MEDS ORDERED: LACTOBACILLUS ACIDOPH & BULGAR 1 EACH PACKET PO SCH (09:00)
[2020-06-18] MEDS ORDERED: CHOLECALCIFEROL 25 MCG (1000 IU) TABLET PO SCH (09:00)
[2020-06-18] MEDS ORDERED: MULTIVITAMINS, THERA 1 EACH TAB PO SCH (09:00)
[2020-06-18] MEDS ORDERED: NON FORMULARY DRUG (Omega-3 Fatty Acids [Omega-3] 1,000 MG Capsule) PO SCH (09:00)
[2020-06-18] MEDS ORDERED: FERROUS SULFATE 325 MG TAB PO SCH (09:00)
[2020-06-18] MEDS ORDERED: PANTOPRAZOLE 40 MG TABLET PO SCH (09:00)
--- NOTE | 2020-06-18 14:21 | P.DS ---
Providers Date of admission: 06/16/20 17:24 Expected date of discharge: 06/17/20 Attending physician: Vinod Gonzalez MD Consults: 06/16/20 17:24 Consult Physician Urgent Consulting Provider: Jas Watts Consult Reason/Comments: Chest pain, tachycardia Do you want consulting provider notified?: Yes Primary care physician: Faiza Gibson [facility] Course: Final Diagnoses: Chest pain, atypical for angina, acute coronary event ruled out as per cardiology Former nicotine dependence Hospital course: This a 45-year-old female admitted with fluctuating chest pain 1 week accompanied by lightheadedness, nausea, occasional belching. Evaluated by cardiology and patient is undergoing a stress echo. Currently denies chest pain, palpitations or shortness of breath. Denies nausea vomiting or diarrhea. Denies belching. Patient will be discharged home later today in a stable condition with guarded prognosis pending stress test results, final DC recommendations and clearance cardiology. The impression and plan of care has been dictated as directed. : I performed a history and examination of this patient, discussed the same with the dictator. I agree with the dictator's note ,documented as a scribe. Any additional findings or plans will be noted. Patient Condition at Discharge: Stable Plan - Discharge Summary Discharge Rx Participant: No New Discharge Prescriptions: Continue L.acidoph,Paracasei, B.lactis [Probiotic] 1 cap PO DAILY Ferrous Sulfate [Iron (65 MG Elemental)] 325 mg PO DAILY [place]-3 Fatty Acids [[place]-3] 1,000 mg PO DAILY Multivitamins, Thera [Multivitamin (formulary)] 1 tab PO DAILY Cholecalciferol [Vitamin D3 (25 Mcg = 1000 Iu)] 50 mcg PO DAILY Ascorbic Acid [Vitamin C] 1,000 mg PO DAILY Discharge Medication List Ascorbic Acid [Vitamin C] 1,000 mg PO DAILY 06/16/20 [History] Cholecalciferol [Vitamin D3 (25 Mcg = 1000 Iu)] 50 mcg PO DAILY 06/16/20 [History] Ferrous Sulfate [Iron (65 MG Elemental)] 325 mg PO DAILY 06/16/20 [History] L.acidoph,Paracasei, B.lactis [Probiotic] 1 cap PO DAILY 06/16/20 [History] Multivitamins, Thera [Multivitamin (formulary)] 1 tab PO DAILY 06/16/20 [History] Wor[place]-3 Fatty Acids [[place]-3] 1,000 mg PO DAILY 06/16/20 [History] Follow up Appointment(s)/Referral(s): Tadeo Beltran MD [STAFF PHYSICIAN] - 3 Weeks (Office will call patient with appointment ) Vinod Gonzalez MD [STAFF PHYSICIAN] - 1 Week Patient Instructions/Handouts: Chest Pain (GEN), Tachycardia (GEN) Discharge Disposition: HOME SELF-CARE
== END 2020-06-17 13:40 | disposition home or self-care (01) ==
LOC: EC 14:56 → 6NMEDSUR 17:24
PROVIDERS: ADMIT Family Medicine; ATTEND Family Medicine
DX: R07.89 Other chest pain (principal); R11.0 Nausea; R06.00 Dyspnea, unspecified; R00.0 Tachycardia, unspecified; R42 Dizziness and giddiness; R14.2 Eructation; F41.9 Anxiety disorder, unspecified; Z79.899 Other long term (current) drug therapy; Z90.49 Acquired absence of other specified parts of digestive tract; Z87.891 Personal history of nicotine dependence; Z87.42 Personal history of other diseases of the female genital tract
CPT/HCPCS: 93005 ×2; 99285; 36415; 94760; 93306; 93351; 85379; 80061; 80053; 84443; 83735; 84484; 85025; 85610; 85730; 71046; G0378 ×2

== ENCOUNTER 2020-10-28 11:42 | Observation (INO) | payer OTHER ==
[2020-10-28] MEDS ORDERED: ASPIRIN 81 MG PO STA (12:33)
--- NOTE | 2020-10-28 12:36 | ED ---
General Adult HPI - General Chief complaint: Arrhythmia/Palpitations Stated complaint: palpitations Time Seen by Provider: 10/28/20 12:23 Source: patient, RN notes reviewed Mode of arrival: ambulatory Limitations: no limitations - History of Present Illness Initial comments: Patient is a pleasant 45-year-old female presenting to the emergency Department with complaints of chest discomfort and palpitations. Patient has been having symptoms since May, worsened yesterday. Patient has checked her heart rate at home has been as high as 130,150, and 170. There was one time was over 200. Patient does have some exertional dyspnea. Patient has had some mild nausea. Patient has had some chest discomfort described as tightness. Patient admits to having anxiety. Patient refuses any anxiety medication at this time. - Related Data Home Medications Medication Instructions Recorded Confirmed Ascorbic Acid [Vitamin C] 1,000 mg PO DAILY 06/16/20 10/28/20 Cholecalciferol [Vitamin D3 (25 50 mcg PO DAILY 06/16/20 10/28/20 Mcg = 1000 Iu)] Aspirin 324 mg PO ONETIME 10/28/20 10/28/20 Ibuprofen [Motrin Ib] 400 mg PO Q6H PRN 10/28/20 10/28/20 Lavender 1 tab PO DAILY 10/28/20 10/28/20 Magnesium Oxide 400 mg PO DAILY 10/28/20 10/28/20 Zinc 50 mg PO DAILY 10/28/20 10/28/20 Allergies Allergy/AdvReac Type Severity Reaction Status Date / Time No Known Allergies Allergy Verified 10/28/20 14:02 Review of Systems ROS Statement: Those systems with pertinent positive or pertinent negative responses have been documented in the HPI. ROS Other: All systems not noted in ROS Statement are negative. Constitutional: Reports: other (Patient had temperature of 100 last night) Eyes: Denies: eye pain ENT: Denies: ear pain Respiratory: Reports: as per HPI Cardiovascular: Reports: as per HPI, chest pain, palpitations Endocrine: Denies: fatigue Gastrointestinal: Denies: abdominal pain Genitourinary: Denies: dysuria Musculoskeletal: Denies: back pain Skin: Denies: rash Neurological: Denies: weakness Past Medical History Past Medical History: No Reported History Additional Past Medical History / Comment(s): SVT History of Any Multi-Drug Resistant Organisms: None Reported Past Surgical History: Appendectomy Additional Past Surgical History / Comment(s): ovarian cyst surg Past Anesthesia/Blood Transfusion Reactions: No Reported Reaction Past Psychological History: Anxiety, Depression, PTSD Smoking Status: Former smoker Past Alcohol Use History: Occasional Past Drug Use History: None Reported - Past Family History Mother Family Medical History: No Reported History General Exam Limitations: no limitations General appearance: alert, in no apparent distress Head exam: Present: normocephalic Eye exam: Present: normal appearance Neck exam: Present: normal inspection Respiratory exam: Present: normal lung sounds bilaterally Cardiovascular Exam: Present: regular rate, normal rhythm, normal heart sounds Expanded Peripheral pulses: 2+: Radial (R), Radial (L), Posterior Tibialis (R), Posterior Tibialis (L), Dorsalis Pedis (R), Dorsalis Pedis (L) GI/Abdominal exam: Present: soft. Absent: tenderness Extremities exam: Present: normal inspection. Absent: pedal edema, calf tenderness Neurological exam: Present: alert Psychiatric exam: Present: normal affect, normal mood Skin exam: Present: normal color Course Vital Signs 10/28/20 10/28/20 11:47 14:42 Temperature 97.8 F Pulse Rate 101 H 96 Respiratory 18 17 Rate Blood Pressure 126/83 117/78 O2 Sat by Pulse 100 100 Oximetry EKG Findings - EKG Comments: EKG Findings:: Normal sinus rhythm with rate of 87. DE 142. QRS 78. QT 362. QTC 435. Normal axis. Normal QRS. No acute ST change. Medical Decision Making - Medical Decision Making Patient reevaluated and resting comfortably in bed. Patient family updated on results and plan. Case was discussed with Dr. Gonzales, covering Dr. Judge, who will admit. - Lab Data Result diagrams: 10/28/20 12:43 10/28/20 12:43 Lab Results 10/28/20 10/28/20 10/28/20 Range/Units 12:43 12:43 12:43 WBC 4.8 (3.8-10.6) k/uL RBC 5.06 (3.80-5.40) m/uL Hgb 14.5 (11.4-16.0) gm/dL Hct 44.1 (34.0-46.0) % MCV 87.1 (80.0-100.0) fL MCH 28.7 (25.0-35.0) pg MCHC 32.9 (31.0-37.0) g/dL RDW 12.8 (11.5-15.5) % Plt Count 202 (150-450) k/uL MPV 7.2 Neutrophils % 78 % Lymphocytes % 14 % Monocytes % 5 % Eosinophils % 1 % Basophils % 1 % Neutrophils # 3.7 (1.3-7.7) k/uL Lymphocytes # 0.7 L (1.0-4.8) k/uL Monocytes # 0.3 (0-1.0) k/uL Eosinophils # 0.0 (0-0.7) k/uL Basophils # 0.0 (0-0.2) k/uL PT 9.9 (9.0-12.0) sec INR 0.9 (<1.2) APTT 22.0 (22.0-30.0) sec D-Dimer 0.41 (<0.60) mg/L FEU Sodium 140 (137-145) mmol/L Potassium 4.2 (3.5-5.1) mmol/L Chloride 106 (98-107) mmol/L Carbon Dioxide 24 (22-30) mmol/L Anion Gap 10 mmol/L BUN 9 (7-17) mg/dL Creatinine 0.66 (0.52-1.04) mg/dL Est GFR (CKD-EPI)AfAm >90 (>60 ml/min/1.73 sqM) Est GFR (CKD-EPI)NonAf >90 (>60 ml/min/1.73 sqM) Glucose 104 H (74-99) mg/dL Calcium 9.3 (8.4-10.2) mg/dL Magnesium 2.0 (1.6-2.3) mg/dL Total Bilirubin 0.1 L (0.2-1.3) mg/dL AST 47 H (14-36) U/L ALT 31 (4-34) U/L Alkaline Phosphatase 52 (38-126) U/L Troponin I (0.000-0.034) ng/mL Total Protein 7.0 (6.3-8.2) g/dL Albumin 4.2 (3.5-5.0) g/dL 10/28/20 Range/Units 12:43 WBC (3.8-10.6) k/uL RBC (3.80-5.40) m/uL Hgb (11.4-16.0) gm/dL Hct (34.0-46.0) % MCV (80.0-100.0) fL MCH (25.0-35.0) pg MCHC (31.0-37.0) g/dL RDW (11.5-15.5) % Plt Count (150-450) k/uL MPV Neutrophils % % Lymphocytes % % Monocytes % % Eosinophils % % Basophils % % Neutrophils # (1.3-7.7) k/uL Lymphocytes # (1.0-4.8) k/uL Monocytes # (0-1.0) k/uL Eosinophils # (0-0.7) k/uL Basophils # (0-0.2) k/uL PT (9.0-12.0) sec INR (<1.2) APTT (22.0-30.0) sec D-Dimer (<0.60) mg/L FEU Sodium (137-145) mmol/L Potassium (3.5-5.1) mmol/L Chloride (98-107) mmol/L Carbon Dioxide (22-30) mmol/L Anion Gap mmol/L BUN (7-17) mg/dL Creatinine (0.52-1.04) mg/dL Est GFR (CKD-EPI)AfAm (>60 ml/min/1.73 sqM) Est GFR (CKD-EPI)NonAf (>60 ml/min/1.73 sqM) Glucose (74-99) mg/dL Calcium (8.4-10.2) mg/dL Magnesium (1.6-2.3) mg/dL Total Bilirubin (0.2-1.3) mg/dL AST (14-36) U/L ALT (4-34) U/L Alkaline Phosphatase (38-126) U/L Troponin I <0.012 (0.000-0.034) ng/mL Total Protein (6.3-8.2) g/dL Albumin (3.5-5.0) g/dL - Radiology Data Radiology results: image reviewed (Chest x-ray shows no acute process) Disposition Clinical Impression: Chest pain Disposition: ADMITTED IP TO THIS [facility] Is patient prescribed a controlled substance at d/c from ED?: No Referrals: Faiza Gibson MD [Primary Care Provider] - 1-2 days Decision Time: 15:51
[2020-10-28 12:57] LABS: Basophils % (A) 1 %; Eosinophils % (A) 1 %; HCT 44.1 % (34.0-46.0); HGB 14.5 gm/dL (11.4-16.0); Lymphocytes # (A) 0.7 k/uL (1.0-4.8); Lymphocytes % (A) 14 %; MCH 28.7 pg (25.0-35.0); MCHC 32.9 g/dL (31.0-37.0); MCV 87.1 fL (80.0-100.0); Mean Platelet Volume 7.2; Monocytes # (A) 0.3 k/uL (0-1.0); Monocytes % (A) 5 %; Neutrophils # (A) 3.7 k/uL (1.3-7.7); Neutrophils % (A) 78 %; Platelet Count 202 k/uL (150-450); RBC 5.06 m/uL (3.80-5.40); RDW 12.8 % (11.5-15.5); WBC 4.8 k/uL (3.8-10.6)
--- NOTE | 2020-10-28 13:13 | XR ---
EXAMINATION TYPE: XR chest 2V DATE OF EXAM: 10/28/2020 COMPARISON: NONE TECHNIQUE: PA and lateral views submitted. HISTORY: Heart palpitations FINDINGS: The lungs are clear and there is no pneumothorax, pleural effusion, or focal pneumonia. Arch size i s normal. There is no overt failure. IMPRESSION: 1. No acute process.
[2020-10-28 13:16] LABS: D-Dimer 0.41 mg/L FEU (<0.60); INR 0.9 (<1.2); Prothrombin Time 9.9 sec (9.0-12.0)
[2020-10-28 13:20] LABS: ALT 31 U/L (4-34); AST 47 U/L (14-36); African American GFR (CKD) >90 (>60 ml/min/1.73 sqM); Albumin 4.2 g/dL (3.5-5.0); Alkaline Phosphatase 52 U/L (38-126); Anion Gap 10 mmol/L; Blood Urea Nitrogen 9 mg/dL (7-17); Calcium 9.3 mg/dL (8.4-10.2); Carbon Dioxide 24 mmol/L (22-30); Chloride 106 mmol/L (98-107); Glucose 104 mg/dL (74-99); Non-African American GFR(CKD) >90 (>60 ml/min/1.73 sqM); Potassium 4.2 mmol/L (3.5-5.1); Sodium 140 mmol/L (137-145); Total Bilirubin 0.1 mg/dL (0.2-1.3)
[2020-10-28] MEDS ORDERED: NITROGLYCERIN SL TABS 0.4 MG TAB SUBLINGUAL PRN (15:51)
[2020-10-28] MEDS ORDERED: ONDANSETRON 4 MG/2 ML VIAL IVP PRN (20:17)
[2020-10-28] MEDS ORDERED: HYOSCYAMINE SULFATE 0.125 MG TAB PO PRN (20:17)
[2020-10-28] MEDS ORDERED: MELATONIN 5 MG TABLET PO SCH (21:00)
[2020-10-28] MEDS ORDERED: traZODone HCL 50 MG TAB PO PRN (22:35)
[2020-10-29 07:38] VITALS: BP 113/72; PULSE 85; RESP 18; TEMP 98.5
[2020-10-29] MEDS ORDERED: ASPIRIN 325 MG TAB PO SCH (09:00)
--- NOTE | 2020-10-29 09:51 | P.CRDCN ---
History of Present Illness History of present illness: HISTORY OF PRESENTING ILLNESS This is a pleasant 45-year-old female past medical history significant for her nicotine dependence, she quit smoking one year ago and self-reported anx iety. She denies prior history of coronary artery disease. She follows in the office with Dr. Beltran. We have been asked to see in consultation for chest pain. Patient states his over the past week she's been experiencing symptoms of palpitations and intermittent chest tightness. She describes it as sometimes sharp. It occurs randomly with no specific aggravating or alleviating factors. The pain is nonexertional, nonradiating. Currently she is chest pain free. She describes these episodes as if her heart is racing. She also consistently looks at her upper March and sometimes she sees her heart rate in the 140s. She states she also has anxiety for one her heart races she feels even more anxious. She denies any associated symptoms of shortness of breath, nausea, vomiting, lightheadedness, dizziness, syncope. She is a nonsmoker. She denies alcohol or illicit drug use. She was recently admitted to the hospital on 06/17/2020 with similar complaints. Patient underwent a stress echocardiogram which was negative. She also underwent an echocardiogram showed an EF of 6065%. She follows up with Dr. Beltran in the office on 07/21/2020. Patient underwent a 30 day event monitor from 09/1310/12/2020, the report read as patient in sinus rhythm, 8 beats of nonsustained atrial tachycardia, she occasionally does skip some beats but these are nonsustained. No critical acute findings. DIAGNOSTICS EKG reveals sinus mechanism with poor R-wave progression and nonspecific abnormalities inferior laterally n. Telemetry tracings indicate sinus mechanism with no acute arrhythmia. Most recent stress test was 05/2020 was a stress echo which was negative for ischemia. Most echocardiogram 05/2020 revealed EF of 60-65%, no wall motion abnormalities. Chest xray negative for acute cardiopulmonary process. Laboratory reviewed, CBC unremarkable, d-dimer negative, sodium 140, potassium 4.1, creatinine 0.66, cardiac enzymes negative 3, LDL 85 and HDL 65. She takes aspirin daily REVIEW OF SYSTEMS At the time of my exam: CONSTITUTIONAL: Denies fever or chills. CARDIOVASCULAR: + chest pain, +palpitations Denies shortness of breath, orthopnea, PND RESPIRATORY: Denies cough. GASTROINTESTINAL: Denies abdominal pain, diarrhea, constipation, nausea or vomiting. MUSCULOSKELETAL: Denies myalgias. NEUROLOGIC: Denies numbness, tingling, headacbe or weakness. ENDOCRINE: Denies fatigue, weight change, polydipsia or polyurina. GENITOURINARY: Denies burning, hematuria or urgency with micturation. HEMATOLOGIC: Denies history of anemia or bleeding. PHYSICAL EXAMINATION Blood pressure 108/71 heart rate 78 afebrile and maintaining oxygen saturation on room air. CONSTITUTIONAL: No apparent distress. HEENT: Head is normocephalic. Pupils are equal, round. Sclerae anicteric. Mucous membranes of the mouth are moist. No JVD. No carotid bruit. CHEST EXAMINATION: Lungs are clear to auscultation. No chest wall tenderness is noted on palpation or with deep breathing. HEART EXAMINATION: Regular rate and rhythm. S1, S2 heard. No murmurs, gallops or rub. ABDOMEN: Soft, nontender. Positive bowel sounds. EXTREMITIES: 2+ peripheral pulses, no lower extremity edema and no calf tenderness. NEUROLOGIC EXAMINATION: Patient is awake, alert and oriented x3. ASSESSMENT Chest pain, atypical, acute coronary syndrome has ruled out. Palpitations Former nicotine dependence PLAN An acute coronary event has been ruled out. Patient with recent echocardiogram and recent event monitor. With no acute findings. Pain is atypical for angina. From cardiology perspective, patient is stable to be discharged home. Patient can follow-up in the office with Dr. Beltran Thank you kindly for this consultation. Nurse Practitioner note has been reviewed, I agree with a documented findings and plan of care. Patient was seen and examined. Past Medical History Past Medical History: No Reported History, Supraventricular Tachycardia (SVT) Additional Past Medical History / Comment(s): SVT History of Any Multi-Drug Resistant Organisms: None Reported Past Surgical History: Appendectomy Additional Past Surgical History / Comment(s): ovarian cyst surg Past Anesthesia/Blood Transfusion Reactions: No Reported Reaction Past Psychological History: Anxiety, Depression, PTSD Smoking Status: Former smoker Past Alcohol Use History: Occasional Past Drug Use History: None Reported - Past Family History Mother Family Medical History: No Reported History Medications and Allergies Home Medications Medication Instructions Recorded Confirmed Type Ascorbic Acid [Vitamin C] 1,000 mg PO DAILY 06/16/20 10/28/20 History Cholecalciferol [Vitamin D3 (25 50 mcg PO DAILY 06/16/20 10/28/20 History Mcg = 1000 Iu)] Aspirin 324 mg PO ONETIME 10/28/20 10/28/20 History Ibuprofen [Motrin Ib] 400 mg PO Q6H PRN 10/28/20 10/28/20 History Lavender 1 tab PO DAILY 10/28/20 10/28/20 History Magnesium Oxide 400 mg PO DAILY 10/28/20 10/28/20 History Zinc 50 mg PO DAILY 10/28/20 10/28/20 History Allergies Allergy/AdvReac Type Severity Reaction Status Date / Time No Known Allergies Allergy Verified 10/28/20 14:02 Physical Exam Vitals: Vital Signs Temp Pulse Pulse Resp BP BP Pulse Ox 10/29/20 02:00 97.5 F L 69 16 101/67 97 10/29/20 01:56 18 10/28/20 20:00 18 10/28/20 19:49 98.1 F 77 18 128/79 99 10/28/20 18:42 98.1 F 78 18 115/74 98 10/28/20 16:05 81 16 114/58 98 10/28/20 14:42 96 17 117/78 100 10/28/20 11:47 97.8 F 101 H 18 126/83 100 Intake and Output 10/28/20 10/28/20 10/29/20 14:59 22:59 06:59 Other: Voiding Method Toilet Toilet # Voids 1 3 # Bowel Movements 4 Weight 57.606 kg 57.606 kg Results 10/28/20 12:43 10/28/20 12:43 Cardiac Enzymes 10/28/20 10/28/20 10/28/20 Range/Units 12:43 12:43 16:29 AST 47 H (14-36) U/L Troponin I <0.012 <0.012 (0.000-0.034) ng/mL 10/28/20 Range/Units 19:36 AST (14-36) U/L Troponin I <0.012 (0.000-0.034) ng/mL Coagulation 10/28/20 Range/Units 12:43 PT 9.9 (9.0-12.0) sec APTT 22.0 (22.0-30.0) sec CBC 10/28/20 Range/Units 12:43 WBC 4.8 (3.8-10.6) k/uL RBC 5.06 (3.80-5.40) m/uL Hgb 14.5 (11.4-16.0) gm/dL Hct 44.1 (34.0-46.0) % Plt Count 202 (150-450) k/uL Comprehensive Metabolic Panel 10/28/20 Range/Units 12:43 Sodium 140 (137-145) mmol/L Potassium 4.2 (3.5-5.1) mmol/L Chloride 106 (98-107) mmol/L Carbon Dioxide 24 (22-30) mmol/L BUN 9 (7-17) mg/dL Creatinine 0.66 (0.52-1.04) mg/dL Glucose 104 H (74-99) mg/dL Calcium 9.3 (8.4-10.2) mg/dL AST 47 H (14-36) U/L ALT 31 (4-34) U/L Alkaline Phosphatase 52 (38-126) U/L Total Protein 7.0 (6.3-8.2) g/dL Albumin 4.2 (3.5-5.0) g/dL Current Medications Generic Name Dose Route Start Last Admin Trade Name Freq PRN Reason Stop Dose Admin Aspirin 325 mg 10/29/20 09:00 Aspirin 325 Mg Tab PO DAILY JESICA Hyoscyamine 0.125 mg 10/28/20 20:17 10/28/20 21:08 Hyoscyamine Sulfate 0.125 Mg Tab PO 0.125 mg Q4H PRN Administration Bloating Melatonin 5 mg 10/28/20 21:00 10/28/20 21:08 Melatonin 5 Mg Tablet PO 5 mg HS JESICA Administration Nitroglycerin 0.4 mg 10/28/20 15:51 Nitroglycerin Sl Tabs 0.4 Mg Tab SUBLINGUAL Q5M PRN Chest Pain Ondansetron HCl 4 mg 10/28/20 20:17 Ondansetron 4 Mg/2 Ml Vial IVP Q6HR PRN Nausea And Vomiting Sodium Chloride 10 ml 10/28/20 21:00 10/28/20 20:08 Sodium Chloride 0.9% Flush 10 Ml Syringe IV 10 ml BID JESICA Administration Trazodone HCl 50 mg 10/28/20 22:35 10/29/20 02:24 Trazodone Hcl 50 Mg Tab PO 50 mg HS PRN Administration Insomnia Intake and Output 10/28/20 10/28/20 10/29/20 14:59 22:59 06:59 Other: Voiding Method Toilet Toilet # Voids 1 3 # Bowel Movements 4 Weight 57.606 kg 57.606 kg Patient Weight 10/29/20 06:59 Weight 57.606 kg 10/28/20 12:43 10/28/20 12:43
[2020-10-29 11:32] LABS: Chol/HDL Ratio 2.82; LDL Cholesterol,Calculated 63.2 mg/dL (0.0-131.0); VLDL Calculation 16.8 mg/dL (5.00-40.00)
== END 2020-10-29 11:45 | disposition home or self-care (01) ==
LOC: EC 11:42 → 6NMEDSUR 15:51
PROVIDERS: ADMIT Family Medicine; ATTEND Family Medicine
DX: R07.89 Other chest pain (principal); R06.09 Other forms of dyspnea; R11.0 Nausea; F41.9 Anxiety disorder, unspecified; I47.1 Supraventricular tachycardia; F43.10 Post-traumatic stress disorder, unspecified; F32.9 Major depressive disorder, single episode, unspecified; Z79.82 Long term (current) use of aspirin; Z79.899 Other long term (current) drug therapy; Z87.42 Personal history of other diseases of the female genital tract; Z87.891 Personal history of nicotine dependence; Z90.49 Acquired absence of other specified parts of digestive tract; Z98.890 Other specified postprocedural states
CPT/HCPCS: 93005 ×2; 99285; 36415; 85379; 80061; 80053; 83735; 84484; 85025; 85610; 85730; 71046; G0378 ×2

== ENCOUNTER → 2022-07-12 | Outpatient (CLI) | payer OTHER ==
--- NOTE | 2022-07-12 13:12 | MR ---
EXAMINATION TYPE: MR brain wo con DATE OF EXAM: 07/12/2022 COMPARISON: NONE HISTORY: 47-year-old female G43.109, MIGRAINE WITH AURA, DIZZINESS, RINGING IN EARS AND HEAD TECHNIQUE: Multiplanar, multisequence images of the brain and brainstem were acquired without IV con trast. Diffusion weighted imaging is performed. FINDINGS: No evidence for acute infarction, hemorrhage, mass, mass effect, midline shift, herniation, effacemen t of basal cisterns, or extra-axial fluid collection. The ventricles and sulci are age-appropriate. Major intracranial flow voids are intact. T2/FLAIR weighted sequences show moderate scattered burden of right signal foci in the subcortical an d deep white matter regions of both cerebral hemispheres. 20-25 foci in the right cerebral hemisphere and approximately 10 foci in the left cerebral hemisphere. Foci measure up to 5 mm. 4 mm perivascula r space right basal ganglia incidentally seen. T2*/gradient sequence shows no suspicious susceptibility foci to suggest prior micro-bleeds. Midline structures demonstrate normal morphology. The craniocervical junction is normal. Post contrast images demonstrate no evidence of pathologic enhancement. Dural venous sinuses are pat ent. Leftward nasal septal deviation. Small amount of fluid inferior right mastoid air cells. Mild mucosal thickening throughout the ethmoid air cells. IMPRESSION: 1. Moderate scattered burden of T2 bright white matter foci in both cerebral hemispheres. Given the p atient's history, findings likely represent sequela of chronic migraines. Demyelinating disease is an alternative consideration. 2. No acute intracranial abnormality seen. 3. Small amount of fluid inferior right mastoid air cells. Correlate for any mesenteric change and ex clude mastoiditis. Mild chronic ethmoid sinus disease.
== END | disposition home or self-care (01) ==
LOC: RADMRIMAIN 10:54
PROVIDERS: ATTEND Family Medicine
DX: J32.2 Chronic ethmoidal sinusitis (principal); G43.109 Migraine with aura, not intractable, without status migrainosus; H93.13 Tinnitus, bilateral
CPT/HCPCS: 70551

== ENCOUNTER → 2022-09-19 | Outpatient (CLI) | payer OTHER ==
--- NOTE | 2022-09-20 10:29 | MM ---
Reason for Exam: Screening (asymptomatic). Baseline mammogram. Patient History: Menarche at age 13. First Full-Term at age 28. Premenopausal. Patient has history of breast feeding. Last menstrual period: 09/15/2022 Risk Values: Anjelica 5 year model risk: 0.9%. NCI Lifetime model risk: 9.3%. Prior Study Comparison: Patient's first Mammogram. Tissue Density: The breast tissue is heterogeneously dense. This may lower the sensitivity of mammography. Findings: Analyzed By CAD. There is no suspicious group of microcalcifications or suspicious mass in either breast. Overall Assessment: Negative, BI-RAD 1 Management: Screening Mammogram of both breasts in 1 year. Some advise ultrasound surveillance in patients with background dense tissue. Patient should continue monthly self-breast exams. A clinical breast exam by your physician is recommended on an annual basis. This exam should not preclude additional follow-up of suspicious palpable abnormalities. Note on Anjelica scores and lifetime risk: 1. A Anjelica score greater than 3% is considered moderate risk. If this is the case, consider specialist referral to assess eligibility for a risk reducing agent. 2. If overall lifetime risk for the development of breast cancer is 20% or higher, the patient may qualify for future screening with alternating mammogram and breast MRI. Electronically signed and approved by: Ren Perkins M.D.
== END | disposition home or self-care (01) ==
LOC: RADMAMWWP 13:24
PROVIDERS: ATTEND Obstetrics & Gynecology Obstetrics
DX: Z12.31 Encounter for screening mammogram for malignant neoplasm of breast (principal)
CPT/HCPCS: 77063; 77067

== ENCOUNTER → 2024-03-14 | Outpatient (CLI) | payer OTHER ==
--- NOTE | 2024-03-14 10:09 | NM ---
EXAMINATION TYPE: NM hepatobiliary w CCK DATE OF EXAM: 03/14/2024 9:07 AM COMPARISON: Abdomen 07/17/2021 CLINICAL INDICATION:Female, 48 years old with history of R10.11 RIGHT U PPER QUADRANT PAIN; TECHNIQUE: The patient was given 5.35 mCi of Technetium 99m-Mebrofenin as a radiotracer and multiple scintigraphic images were obtained of the abdomen. Gallbladder function was also assessed after the administration of 1.2 mcg of Kinevac (cholecystokinin) and additional scintigraphic images were obtai summer of the abdomen. A region of interest was drawn over the gallbladder and a timing activity curve w as generated. The gallbladder ejection fraction was calculated. FINDINGS: Normal uptake of radiotracer was identified within the liver with excretion into the hepatic and comm on biliary ducts within 8 min. There was normal progressive washout of the liver over the course of t he study. Radiotracer uptake within the gallbladder at 8 minutes as well as small bowel activity was identified at 12 minutes. Maximum calculated gallbladder ejection fraction is: 89% at 29minutes (Normal gallbladder ejection fraction is > 35%) IMPRESSION: 1. Normal hepatobiliary scan. 2. Normal ejection fraction. [facility], , 03/14/2024 10:07 AM
== END | disposition home or self-care (01) ==
LOC: RADNMMAIN 06:47
PROVIDERS: ATTEND Family Medicine
DX: R10.11 Right upper quadrant pain (principal)
CPT/HCPCS: 78227; A9537; J2805